=== PATIENT | female | born 1960 | race Caucasian/White ===

== ENCOUNTER 2018-03-30 08:03 | Observation (INO) | payer BC ==
[2018-03-29 08:41] VITALS: BMI 34.3
--- NOTE | 2018-03-30 09:05 | HP ---
CHIEF COMPLAINT: Lumbar back pain. HISTORY OF PRESENT ILLNESS: This is a 57-year-old female with past medical history significant for cardiovascular accident in 2013 with stent placement. Patient is on Plavix. She reports to the office today for evaluation of low back pain and saddle anesthesia. The patient states that in December, she sat in her bed too long in "wrong positions." She states that when she got up to feed her cats the next morning her back "went out." The patient states that events like this have happened periodically over the years; however, this one was different, the numbness that was in her saddle area and both buttocks. The patient states that originally the pain started in her low back, went down her right gluteal and posterior thigh. Patient gets relief if she brings her knees up to her chest. She has seen her primary care physician, who prescribed anti- inflammatories and muscle relaxers, painkillers along with prednisone. Her pain is more or less relieved at this point; however, the numbness continues. The patient denies physical therapy or injections. The patient states that she is unable to hold the urine or her bowels and this is of great concern to her. REVIEW OF SYSTEMS: A 10-point review of systems that is otherwise negative than stated above in the HPI. PAST MEDICAL HISTORY: CVA in 2014, depression, TIA, degenerative disk disease. PAST SURGICAL HISTORY: in 06/1989, in 12/1994, cholecystectomy in 08/26, heart catheterization in 06/27, and heart cath in . HOSPITALIZATIONS: The of her children, gallbladder, and cardiovascular accident. FAMILY HISTORY: Father is , diagnosed with heart disease. Mother is , diagnosed with diabetes, hypertension, heart disease. SOCIAL HISTORY: The patient is a smoker, smokes 1 pack a day for 30 years. Patient denies use of alcohol or other illicit drugs. 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 MEDICATIONS: Aspirin, atorvastatin, carvedilol, clopidogrel, etodolac, tizanidine, acyclovir, alprazolam, cyclobenzaprine, dicyclomine, fluticasone propionate, Lyrica, terbinafine, Vyvanse, hydrocortisone, ondansetron. ALLERGIES: BUSPIRONE. PHYSICAL EXAMINATION: CONSTITUTIONAL: A well-appearing, well-nourished, alert. NEUROLOGIC: Mental status: Oriented to time, place, and person. Normal attention span and concentration. Speech is spontaneous and fluent. Comprehension intact and content appropriate. Normal fund of knowledge. Cranial nerves: Pupils equal, round, reactive to light. Extraocular movements intact. Hearing intact. II-XII grossly intact. Motor: Muscle strength is normal in lower extremities. Muscle tone and bulk normal in lower extremities. A 5/5 bilateral strength IP, KE, KF, DF, PF, EHL. L5 radiculopathy, positive single leg raise on the right, rotation of bilateral hips normal. Deep tendon reflexes, 2+ bilateral patellar and 2+ ankle bilaterally. Sensory: Light touch decreased, right, included posterior thigh. Gait and station, sit to stand, normal, normal gait. RESPIRATORY: Normal work of breathing in room air. CARDIOVASCULAR: Regular rate and rhythm. Normal S1 and S2. PSYCHIATRIC: Normal mood and affect. IMAGING: I personally reviewed his MRI of lumbar spine. Normal lordosis of the lumbar spine. There is mild central canal stenosis at L4-L5 and severe herniated nucleus pulposus at L5-S1. ASSESSMENT AND PLAN: Herniated nucleus pulposus with spinal stenosis, lumbar region. Dr. Michel has offered lumbar laminectomy L4-S1and diskectomy at L5- S1. PLAN: We have discussed the indications, risks, benefits, alternatives, and expected results from surgery. The risks discussed include, but are not limited to bleeding, infection, CSF leak, nerve damage, weakness, incontinence, cauda equina injury, arachnoiditis, paralysis, ventilator dependence, wheelchair dependence, loss of vision, cardiopulmonary complications of anesthesia or . Long-term complications discussed included but are not limited to degeneration of surrounding disks and future surgery. The patient states her understanding of the risks and is willing to proceed with surgery. SHARONA
[2018-03-30 09:07] LABS: #Basophils 0.1 thou/uL (0.0-0.2); #Eosinphils 0.5 thou/uL (0.0-0.7); #Lymphocytes 2.7 thou/uL (1.20-3.40); #Monocytes 0.5 thou/uL (0.11-0.59); #Neutrophils 5.1 thou/uL (1.40-6.50); %Basophils 1.2 % (0.0-1.0); %Eosinophils 5.2 % (0.0-10.0); %Lymphocytes 30.1 % (21.0-51.0); %Monocytes 5.4 % (0.0-10.0); %Neutrophils 58.2 % (42.0-75.0); Hemoglobin 14.6 g/dL (12.0-16.0); Mean Corpuscular HGB CONC 34.4 g/dL (32.0-36.0); Mean Corpuscular Hemoglobin 30.4 pg (27.0-31.0); Mean Corpuscular Volume 88.2 fL (78.0-98.0); Mean Platelet Volume 6.9 fL (7.4-10.4); Platelet Count 306 thou/uL (130-400); RBC Distribution Width 12.5 % (11.5-14.5); Red Blood Cell (RBC) Count 4.81 mill/uL (4.20-5.40); White Blood Cell (WBC) Count 8.8 thou/uL (4.8-10.8)
[2018-03-30] MEDS ORDERED: CEFAZOLIN/Water 2 GM/20 ML SYRINGE ONE (09:09)
[2018-03-30 09:13] LABS: PTT 29.4 SEC (22.9-36.1)
[2018-03-30 09:20] LABS: Anion Gap 12 mmol/L (10-20); BUN (Urea Nitrogen) 16 mg/dL (9.8-20.1); Calc. Creatinine Clearance 131 mL/min (70-130); Calcium 9.1 mg/dL (7.8-10.44); Carbon Dioxide 26 mmol/L (22-29); Chloride 106 mmol/L (98-107); Estimated GFR-MDRD 90; Glucose 88 mg/dL (70-105); Sodium 140 mmol/L (136-145)
[2018-03-30] MEDS ORDERED: Bupivacaine HCl 0.5%/Epinephrine 1:200,000/PF 30 ml Vial ONE (10:20)
[2018-03-30] MEDS ORDERED: Sodium Chloride 0.9% 10 ML ONE (10:20)
[2018-03-30] MEDS ORDERED: Thrombin 5000 UNITS/5 ML VIAL ONE ×2 (10:20→14:05)
[2018-03-30] MEDS ORDERED: Fentanyl 100 MCG/2 ML VIAL ONE ×5 (11:13→16:13)
[2018-03-30] MEDS ORDERED: Rocuronium Bromide 50 MG/5 ML VIAL ONE (12:23)
[2018-03-30] MEDS ORDERED: ePHEDrine/0.9% NaCl/PF SYRINGE 50 mg/10 ml ONE (12:54)
[2018-03-30] MEDS ORDERED: Glycopyrrolate 0.2 MG/ML 5 ML SYRINGE ONE (12:54)
[2018-03-30] MEDS ORDERED: Lidocaine 1% PF 5 ML VIAL ONE (12:54)
[2018-03-30] MEDS ORDERED: Ondansetron HCl/PF 4 MG/2 ML Vial ONE (12:54)
[2018-03-30] MEDS ORDERED: PROPOFOL 200 MG/20 ML VIAL ONE (12:54)
[2018-03-30] MEDS ORDERED: PHENYLEPHRINE-NS 100 MCG/ML 10 ML SYRINGE ONE (12:54)
[2018-03-30] MEDS ORDERED: Metoclopramide HCl 10 MG/2 ML VIAL ONE (12:54)
[2018-03-30] MEDS ORDERED: Albumin 5% 500 ML ONE (14:03)
[2018-03-30] MEDS ORDERED: Zolpidem Tartrate 5 MG TAB PO PRN ×2 (14:52→17:05)
[2018-03-30] MEDS ORDERED: traMADol HCl 50 MG TAB PO PRN ×3 (14:52→17:05)
[2018-03-30] MEDS ORDERED: Promethazine 25 MG TAB PO PRN ×2 (14:52→17:05)
[2018-03-30] MEDS ORDERED: Milk Of Magnesia 30 ML UDCUP PO PRN ×2 (14:52→17:05)
[2018-03-30] MEDS ORDERED: diphenhydrAMINE 25 MG CAP PO PRN ×2 (14:52→17:05)
[2018-03-30] MEDS ORDERED: Acetaminophen 325 MG TAB PO PRN ×2 (14:52→17:05)
[2018-03-30] MEDS ORDERED: Acetaminophen/Codeine 30-300mg Tablet PO PRN ×2 (14:52)
[2018-03-30] MEDS ORDERED: tiZANidine HCl 4 MG TAB PO PRN ×2 (14:52→21:00)
[2018-03-30] MEDS ORDERED: diphenhydrAMINE 50 MG/ML VIAL IVP PRN ×2 (14:52→17:05)
[2018-03-30] MEDS ORDERED: Bisacodyl 10 MG SUPP PR PRN ×2 (14:52→17:05)
[2018-03-30] MEDS ORDERED: Mag-Al 1200 mg/1200 mg/30 ML UDCUP PO PRN ×2 (14:52→17:05)
[2018-03-30] MEDS ORDERED: Ondansetron ODT 4 MG TAB PO PRN (15:00)
[2018-03-30] MEDS ORDERED: Dicyclomine 20 MG TAB PO PRN (15:00)
[2018-03-30] MEDS ORDERED: Promethazine HCl 25 MG/ML VIAL SLOW IVP PRN (15:51)
[2018-03-30] MEDS ORDERED: Ondansetron HCl/PF 4 MG/2 ML Vial IVP PRN (15:51)
[2018-03-30] MEDS ORDERED: Promethazine HCl 25 MG/ML VIAL IM PRN ×2 (15:51→17:05)
[2018-03-30] MEDS ORDERED: Promethazine HCl 12.5 MG SUPP PR PRN (17:05)
[2018-03-30] MEDS ORDERED: Acetaminophen 650 MG Suppository PR PRN (17:05)
[2018-03-30] MEDS ORDERED: Morphine 4 MG/ML Carpuject SLOW IVP PRN (17:05)
[2018-03-30] MEDS ORDERED: Meperidine HCl/PF 25 MG/ML VIAL SLOW IVP PRN (17:05)
[2018-03-30] MEDS ORDERED: HYDROcodone/Acetaminophen 10/325 mg Tablet PO PRN (17:05)
[2018-03-30] MEDS ORDERED: Fleet Enema 133 ML BOT PR PRN (17:05)
[2018-03-30] MEDS: Sodium Chloride 0.9% 1,000 ML IV SCH ×2 (19:19)
[2018-03-30] MEDS ORDERED: Etodolac 200 MG CAP PO PRN (21:00)
[2018-03-30] MEDS ORDERED: Non-Formulary Item 1 EACH (Carvedilol [Carvedilol] 12.5 MG) PO SCH (21:00)
[2018-03-30] MEDS: Carvedilol 6.25 MG TAB PO SCH (21:05)
[2018-03-30] MEDS: Atorvastatin Calcium 40 MG TAB PO SCH (21:05)
[2018-03-30] MEDS: CEFAZOLIN/Water 2 GM/20 ML SYRINGE SLOW IVP SCH (21:06)
[2018-03-30] MEDS ORDERED: CEFAZOLIN/Water 2 GM/20 ML SYRINGE SLOW IVP SCH (22:00)
[2018-03-30] MEDS: HYDROcodone/Acetaminophen 10/325 mg Tablet PO PRN (22:28)
--- NOTE | 2018-03-30 23:18 | OP ---
DATE OF OPERATION: 03/30/2018 SURGEON: Hai Michel M.D. SOFTWARE IMPLEMENTATION SPECIALIST: KOURTNEY Leigh PREOPERATIVE INDICATION: Prevent neurological deterioration. PREOPERATIVE DIAGNOSES: Lateral recess stenosis at L4-L5 and severe spinal stenosis with interverteb ral disk herniation L5-S1, chronic cauda equina symptoms. POSTOPERATIVE DIAGNOSES: Lateral recess stenosis at L4-L5 and severe spinal stenosis with interverte bral disk herniation S1, chronic cauda equina symptoms. OPERATIVE PROCEDURE: Decompressive laminectomy, medial facetectomy and foraminotomy L4-L5 and L5-S1, microdiskectomy L5-S1, repair of middle size durotomy. PREOPERATIVE MEDICATION: Ancef 2 grams IV. DRAIN NUMBER: Zero. DRAIN TYPE: None. OPERATIVE DICTATION: The patient was brought to the operating room. General endotracheal anesthesia was induced. The patient was positioned prone on the operating table with the chest and hips suppor quiana by gel-filled chest rolls. A lateral fluoro radiograph was used to plan our incision. The lumba r skin was sterilely prepped and draped. We opened our incision with a 10-blade knife and controlled bleeding with bipolar cautery. ____ to dissect through copious amounts of subcutaneous fat to the t horacodorsal fascia. We incised the fascia in the midline and we reflected the paraspinal muscles of f the spinous process and lamina of L4, L5, and S1. A self-retaining retractor was placed and a late ral fluoro radiograph confirmed the levels upon which we were operating. We then used an Adson ronge ur to remove the spinous process of L4 and L5 and the superior portion of the sacrum. Using Kerrison rongeurs, we fashioned a laminectomy down the midline. We were careful to preserve the dura. In th e midline at the L4-5 interspace, there was a round needle sized durotomy from which some CSF egress was noted. We brought the operating microscope in the field. Under microscopic magnification using microsurgical techniques, we used at 10-0 Prolene to close the small opening in the dura and we sewed down a pledget of muscle to reinforce that closure. We left S urgicel over the muscle and we continued with our lateral recess decompression. We performed medial facetectomies to ensure that the L5 nerve roots were decompressed at the L4-5 interspace and foramino tomies over the L4 and L5 nerve roots. In similar fashion, we decompressed the lateral recess at L5- S1 to ensure the S1 nerve roots were well decompressed. We then looked for the intervertebral disk h erniation. There was some disk herniated under the right-sided S1 nerve root and removed this under the operating microscope. The central portion of the disk herniation was the most accessible under t he axilla that is one nerve root on the left side. We carefully retracted S2 nerve root medially and found loose fragments of disk in the ventral epidural space. These were removed with a blunt probe. Multiple fragments of disk were removed. We ensured the remaining disk was firmly present in the i nterspace and attached to the endplates rather than ready to ____ again. We removed the sacral anushka a until we are sure that all nerve roots were well decompressed and performed wide foraminotomies ove r the S1 nerve root specifically. We irrigated copiously with bacitracin irrigation. We reenforced our dural closure with DuraSeal tissue sealant. We treated the wound with vancomycin powder. We samantha sed in anatomic layers. We applied a sterile dressing. This was a clean case and no contamination.
[2018-03-31] MEDS: Sodium Chloride 0.9% 1,000 ML IV SCH ×2 (05:31→06:31)
[2018-03-31] MEDS: CEFAZOLIN/Water 2 GM/20 ML SYRINGE SLOW IVP SCH (05:32)
[2018-03-31] MEDS: HYDROcodone/Acetaminophen 10/325 mg Tablet PO PRN ×3 (05:33→16:38)
[2018-03-31] MEDS ORDERED: Tamsulosin HCl 0.4 MG CAP PO SCH (06:00)
--- NOTE | 2018-03-31 07:25 | PRG ---
DATE OF SERVICE: 03/31/2018 I saw Ms. Khan in her hospital room this morning. She still has the perineal numbness that she had before surgery, but it is no worse. She had an in and out catheter placed yesterday and she could fe el the catheter being placed and removed. She knows when her bladder is full. It is difficult for h er to use a bedpan, and she thinks she will be able to navigate to the bathroom safely once she is ab le to walk and sit on a normal commode. Vital signs have been stable. She has no new neurological d eficits and she is ready for discharge once she is safe for activities of daily living. Follow up ar rangements have been made. We went over homegoing restrictions and wound care.
[2018-03-31] MEDS ORDERED: Pregabalin 75 MG CAP PO PRN (09:00)
[2018-03-31] MEDS ORDERED: Bupropion 150 MG XL TAB PO SCH (09:00)
[2018-03-31] MEDS ORDERED: ALPRAZolam 0.25 MG TAB PO SCH (09:00)
[2018-03-31] MEDS ORDERED: Lisdexamfetamine Dimesylate [Vyvanse] 40 MG PO SCH (09:00)
[2018-03-31] MEDS: Atorvastatin Calcium 40 MG TAB PO SCH (09:17)
[2018-03-31] MEDS: Carvedilol 6.25 MG TAB PO SCH (09:17)
[2018-03-31 17:04] VITALS: BP 133/72; TEMP 98.4
--- NOTE | 2018-04-03 17:36 | EKG ---
Test Reason : PREOP Blood Pressure : / mmHG Vent. Rate : 067 BPM Atrial Rate : 067 BPM P-R Int : 164 ms QRS Dur : 094 ms QT Int : 424 ms P-R-T Axes : 041 025 062 degrees QTc Int : 448 ms Normal sinus rhythm Incomplete right bundle branch block Cannot rule out Inferior infarct , age undetermined Abnormal ECG No previous ECGs available Confirmed by DRAKE HALL (2) on 04/03/2018 5:36:26 PM Referred By: DIMAS Confirmed By:DRAKE HALL
== END 2018-03-31 17:00 | disposition home or self-care (01) ==
LOC: SDC 08:03 → SURG B 16:46
PROVIDERS: ADMIT Neurological Surgery; ATTEND Neurological Surgery
PROC: 01NB0ZZ Release Lumbar Nerve, Open Approach (ICD-10-PCS; principal; 2018-03-30)
DX: M48.062 Spinal stenosis, lumbar region with neurogenic claudication (principal); M51.26 Other intervertebral disc displacement, lumbar region; G83.4 Cauda equina syndrome; Z79.82 Long term (current) use of aspirin; Z79.899 Other long term (current) drug therapy
CPT/HCPCS: 36415; 51701; 51798; 76001; 80048; 85025; 85610; 85730; 93005; 93010; 96361; 96374; 96375; 96376; A4216; G0378; G8978-GP-CK; G8979-GP-CJ; J0131; J0670; J2001; J2270; J2405; J2704; J2765; J3010; J3370; J3490; P9045